=== PATIENT | male | born 1950 | race Caucasian/White ===

== ENCOUNTER → 2022-01-21 | Outpatient (CLI) | payer MEDICARE, OTHER ==
[~2022-01-21] MED LIST: AMLODIPINE BES2.5 MG PO; ELIQUIS 2.5 MG2.5 MG PO; FISH OIL 1,0001 EAC1 PO; HYGROTON TAB 2525 MG PO; IBU400 MG PO; MELATONIN10 M2 PO; NORCO 7.5-3251 EACH PO; OMEPRAZOLE20 MG PO; TENORMIN 50 MG50 MG PO; ZOFRAN4 MG PO
== END ==
LOC: KOH-I 13:11
DX: M25.571 Pain in right ankle and joints of right foot (principal)
CPT/HCPCS: 73610